=== PATIENT | female | born 1940 | race Asian ===

== ENCOUNTER 2016-06-07 19:39 | Emergency (ER) | payer OTHER ==
[~2016-06-07] VITALS: Ht 157.5 cm; Wt 63.5 kg
[2016-06-07] MEDS ORDERED: MANNITOL FTV 25% 12.5 GM/50 ML 0 ML IV ONE (20:59)
[2016-06-07] MEDS ORDERED: ONDANSETRON HCL 4 MG/2 ML VIAL IV ONE (21:00)
[2016-06-07] MEDS ORDERED: MANNITOL FTV 25% 12.5 GM/50 ML 50 ML IV ONE ×3 (21:01→21:46)
[2016-06-07] MEDS ORDERED: METOPROLOL TARTRATE 1MG/1ML-5ML VIAL IV ONE ×2 (21:03→21:45)
[2016-06-07] MEDS ORDERED: DEXAMETHASONE SOD PHOS 10MG/1ML VIAL INJ ONE (21:03)
[2016-06-07] MEDS ORDERED: InsuLIN REG 1unit/0.01ml Soln (100units/ml) ONE (21:04)
[2016-06-07] MEDS ORDERED: SUCCINYLCHOLINE CHLORIDE 20 MG/ML 10ML VIAL IV ONE ×5 (21:08→22:00)
[2016-06-07] MEDS ORDERED: ETOMIDATE (2MG/ML) 20ML VIAL IV ONE ×3 (21:08→21:45)
[2016-06-07] MEDS ORDERED: MANNITOL 20 % (20GM/100ML) 0 ML IV ONE (21:19)
[2016-06-07] MEDS ORDERED: MIDAZOLAM DRIP 100 mg/100mL NS 0 ML IV ONE (21:33)
[2016-06-07 21:40] VITALS: BP 158/88
[2016-06-07] MEDS ORDERED: DEXAMETHASONE SOD PHOS 10MG/1ML VIAL INJ IV ONE (21:45)
[2016-06-07] MEDS ORDERED: InsuLIN REG 1unit/0.01ml Soln (100units/ml) IV ONE (21:45)
[2016-06-07] MEDS ORDERED: MANNITOL 20% SOLN 100 gm/500ml 250 ML IV ONE (21:45)
[2016-06-07] MEDS ORDERED: MIDAZOLAM HCL 5 MG/ML-1ML VIAL ONE (21:46)
[2016-06-07] MEDS ORDERED: MIDAZOLAM HCL 5 MG/ML-1ML VIAL IV ONE (22:00)
[2016-06-07 22:04] LABS: Albumin 3.7 g/dL (3.4-5.0); Calcium 9.1 mg/dL (8.5-10.1); Potassium 3.9 mmol/L (3.5-5.1)
[2016-06-07 22:07] LABS: BUN/Creatinine Ratio 29.2; Basophils # (auto) 0 uL; Basophils % (auto) 0.1 % (0.0-2.0); Bilirubin, Total 0.5 mg/dL (0.2-1.0); Eosinophils # (auto) 0 uL; Eosinophils % (auto) 0.1 % (0.0-7.0); Hematocrit 39.1 % (36.0-46.0); Hemoglobin 12.1 g/dL (12.2-16.2); Lymphocytes # (auto) 1.2 uL; Lymphocytes % (auto) 9.1 % (10.0-50.0); Mean Corpuscular Hemoglobin 27.4 pg (28.0-32.0); Mean Corpuscular Hgb Conc. 31.1 g/dL (32.0-36.0); Mean Corpuscular Volume 88.2 fL (80.0-100.0); Mean Platelet Volume 8.2 fL (7.4-10.4); Monocytes # (auto) 0.2 uL; Monocytes % (auto) 1.1 % (0.0-12.0); Neutrophils # (auto) 12.1 uL; Neutrophils % (auto) 89.6 % (37.0-80.0); Platelet Count (auto) 345 10^3/uL (140-450); Red Cell Distribution Width 12.6 % (11.6-16.0); White Blood Cell 13.5 10^3/uL (4.4-10.8)
[2016-06-07 22:10] VITALS: BP 107/52
[2016-06-07] MEDS ORDERED: fentaNYL Drip 2500mCg/250mlNS 250 ML IV ONE (22:13)
[2016-06-07] MEDS ORDERED: NOREPINEPHRINE BITARTRATE 0 ML IV ONE (22:14)
[2016-06-07 22:15] LABS: INR 0.93 (0.9-1.15); Partial Thromboplastin Time 21.6 sec (22.64-33.71); Prothrombin Time 9.6 sec (9.37-12.3)
[2016-06-07] MEDS ORDERED: NOREPINEPHRINE BITARTRATE 250 ML IV SCH (22:15)
[2016-06-07] MEDS ORDERED: SODIUM CHLORIDE 0.9% 1,000 ML IV ONE (22:15)
[2016-06-07] MEDS ORDERED: fentaNYL Drip 2500mCg/250mlNS 250 ML IV SCH (22:15)
[2016-06-07] MEDS ORDERED: cefTRIAXone 1GM/50ML D5W 50 ML IV ONE (22:15)
[2016-06-07] MEDS ORDERED: MIDAZOLAM DRIP 100 mg/100mL NS 100 ML IV ONE (22:16)
[2016-06-07] MEDS ORDERED: MIDAZOLAM DRIP 100 mg/100mL NS 100 ML IV SCH (22:45)
== END 2016-06-07 22:30 | disposition short-term general hospital (02) ==
LOC: ER 19:42
DX: S12.101A Unspecified nondisplaced fracture of second cervical vertebra, initial encounter for closed fracture (principal); S06.5X0A Traumatic subdural hemorrhage without loss of consciousness, initial encounter; E11.65 Type 2 diabetes mellitus with hyperglycemia; V49.49XA Driver injured in collision with other motor vehicles in traffic accident, initial encounter; Y93.89 Activity, other specified; Y99.8 Other external cause status; Y92.488 Other paved roadways as the place of occurrence of the external cause
CPT/HCPCS: 31500; 36415; 36600; 70450; 71010; 72125; 80053; 82805; 82962; 85025; 85610; 85730; 87070; 87077; 87186; 87205; 93005; 94002; 96365; 96367; 96375; 99285; J0330; J0696; J1100; J1815; J2150; J2250; J2405; J3010; J3490